=== PATIENT | female | born 1955 | race Caucasian/White ===

== ENCOUNTER 2020-08-23 19:01 | Inpatient (IN) | payer MEDICARE, OTHER ==
[~2020-08-23] VITALS: Ht 157.5 cm; Wt 77.6 kg
--- NOTE | ~2020-08-23 | CON ---
[address] [address] CONSULTATION Name: YOLIE BOO Room: [address] IN M.R.#: [id number] Admission: 08/23/20 Attend Phys: Ziyad De Jesus Discharge: Date of : 51 Report #: [id number] THIS REPORT FOR: //name// cc: John Michelle MD, Bruce D. MD ~ DATE OF SERVICE: 08/24/2020 CONSULT REQUESTED BY: Clement Buneo. INDICATION FOR CONSULTATION: COVID-19. HISTORY OF PRESENT ILLNESS: This is a 65-year-old female with past medical history is as mentioned below. The patient has had exposure to COVID-19. Her has COVID-19. She has been feeling weak and has been progressively declining over the last several days. Does have some increasing shortness of breath, also has a cough with small amounts of white sputum. She does have swelling of lower extremities as well. The patient is having a high-grade fever up to a temperature of 39.1. She has had gastroesophageal reflux and heartburn, which is not significantly changed at this time. She answered to the negative for 12 questions for review of systems. Her blood pressure is within the normal range, but towards the lower end of normal range. She has been fluid resuscitated from the Emergency Room. PAST MEDICAL HISTORY: Hypertension, hyperlipidemia, hiatal hernia, gallbladder removal, inguinal hernia repair, gastroesophageal reflux disease, fibromyalgia, hepatitis A back in 1973, and two C-sections. SOCIAL HISTORY: Lifetime nonsmoker. No known history of heavy alcohol use or illegal drug use. ALLERGIES: SHE HAS HAD HIVES WITH SULFONAMIDE ANTIBIOTICS AND WITH CODEINE. FAMILY HISTORY: Her has COVID-19. PHYSICAL EXAMINATION: GENERAL: She is fully awake. VITAL SIGNS: Has a pulse of 98 and a blood pressure of 111/66. She is on 2 liters nasal cannula, O2 saturation is 96%, heart rate is 98. She had a high-grade fever earlier today at 39.1. Temperature is 37.9 at this time. HEENT: Head is normocephalic and atraumatic. NECK: Does not show raised JVP, asymmetry, mass or lymph nodes. CHEST: Symmetrical expansion on inspection and palpation. On auscultation, breath sounds are bilaterally equal, mildly decreased. No added sounds. HEART: Regular. [place] [address] CONSULTATION Name: RAN BOOOSORIO Handy Room: [address]#: [id number] Admission: 08/23/20 Attend Phys: Ziyad De Jesus Discharge: Date of : 51 Report #: [id number] ABDOMEN: Soft and nontender. EXTREMITIES: Lower extremities do show 2+ edema bilaterally. There is no calf tenderness. SKIN: Dry and intact. NEUROLOGICAL: Moves all extremities bilaterally equally and spontaneously with no focal deficit identified. LABORATORY DATA: The patient does have some leukopenia with a WBC count of 3.6. Her COVID-19 antigen is positive, in [employer] and reviewed. Arterial blood gas does show a respiratory alkalosis. ASSESSMENT AND PLAN: 1. Acute respiratory insufficiency secondary to COVID-19. I recommend watching her O2 saturations closely. Should she fail to improve or if there are increasing oxygen needs, then I would have a very low threshold of starting remdesivir. We will in fact check a room air O2 saturation now and if she is hypoxemic, then we will consider remdesivir in that case now. She is on dexamethasone. I agree with the same as well. 2. Lung nodule. There is a small lung nodule noted on the chest x-ray. I reviewed her chest x-ray. I suggest obtaining a CT chest without contrast to evaluate this further. This, however, does not appear to be urgent and could be done later this admission. 3. Fever. This is primarily secondary to COVID-19; however, she certainly may have secondary bacterial infection as well and therefore, I agree with giving her antibiotics as currently ordered. She is on dexamethasone as well and I fully agree with the same also. 4. Edema of lower extremities. For this reason, I discontinued IV fluids for now, certainly this could be restarted if her blood pressure dropped. She appears to be well perfused, despite having the blood pressure on the lower side. I obtained the D-dimer, the D-dimer is not elevated. It is not entirely clear to me as to why the patient has edema and therefore, I went ahead and ordered a 2D echo. 5. Deep venous thrombosis prophylaxis. The patient is on Lovenox. Thanks for this consultation. By: [id number] Nair MD /nt
[~2020-08-23 19:01] MED LIST: HYDROCHLOROTHIA25 M1; LEXAPRO 10 MG T10 M1; LOVASTAT20; PRILOSEC40 MG PO
[2020-08-23 19:10] VITALS: BP 108/76
[2020-08-23] MEDS ORDERED: BUSPIRONE HCL7.5 MG PO (19:14)
[2020-08-23] MEDS ORDERED: CELECOXIB200 MG PO (19:14)
[2020-08-23] MEDS ORDERED: TRAMADOL 50 MG50 MG PO (19:15)
[2020-08-23 20:07] LABS: BE 0.5 mmol/L (-2 to +3); PCO2 30.3 mmHg (35.0-45.0); PO2 66.9 mmHg (75.0-100.0); pH 7.497 (7.340-7.450)
[2020-08-23 20:58] LABS: ABSOLUTE LYMPHOCYTES 0.7 thou/uL (0.8-5.3); ABSOLUTE MONOCYTES 0.3 thou/uL (0.0-1.2); ABSOLUTE NEUTROPHILS 3.8 thou/uL (1.6-8.1); BASOPHILS 0.2 %; EOSINOPHILS 0.4 %; HEMATOCRIT 32.6 % (37.0-47.0); HEMOGLOBIN 11.8 gm/dL (12.0-15.0); LYMPHOCYTES 14.6 %; MCH 32.8 pg (26.0-34.0); MCHC 36.1 g/dL (28.0-37.0); MCV 91.1 fL (80.0-100.0); MONOCYTES 6.7 %; MPV 8.3 fl. (7.2-11.1); NUCLEATED RBCS 0 /100WBC; PLATELET COUNT* 200 thou/uL (150-400); POLYS 78.1 %; RBC 3.58 mil/uL (4.20-5.00); RDW-CV 12.9 % (10.5-14.5); WBC 4.8 thou/uL (4.0-11.0)
[2020-08-23 21:07] LABS: CALCIUM 8.5 mg/dL (8.5-10.1); CREATININE 1.2 mg/dL (0.6-1.3); POTASSIUM 3.6 mmol/L (3.5-5.1)
[2020-08-23 21:12] LABS: ALBUMIN 3.6 g/dL (3.4-5.0); MAGNESIUM 1.9 mg/dL (1.8-2.4); TOTAL BILIRUBIN 1.2 mg/dL (<0.1-1.0); TOTAL PROTEIN 7.2 g/dL (6.4-8.2)
[2020-08-23 23:03] LABS: URINE BILIRUBIN NEGATIVE (Negative); URINE BLOOD NEGATIVE (Negative); URINE CLARITY CLEAR; URINE COLOR YELLOW; URINE GLUCOSE-RANDOM NEGATIVE (Negative); URINE KETONES NEGATIVE (Negative); URINE LEUKOCYTES-REFLEX NEGATIVE (Negative); URINE NITRITE-REFLEX NEGATIVE (Negative); URINE PROTEIN NEGATIVE (Negative); URINE UROBILINOGEN 0.2 E.U./dl (0.2-1.0)
[2020-08-24] VITALS (7 sets, daily range): BP systolic 106–136; BP diastolic 62–72
[2020-08-24] MEDS ORDERED: VITAMIN D31250 MC1 PO (02:14)
[2020-08-24] MEDS ORDERED: SUPER THERAVIT1 EACH PO (02:15)
[2020-08-24 15:56] LABS: ABSOLUTE LYMPHOCYTES 0.5 thou/uL (0.8-5.3); ABSOLUTE MONOCYTES 0.1 thou/uL (0.0-1.2); BASOPHILS 0.2 %; EOSINOPHILS 0.1 %; HEMOGLOBIN 10.3 gm/dL (12.0-15.0); LYMPHOCYTES 12.9 %; MCH 32.3 pg (26.0-34.0); MCHC 35.6 g/dL (28.0-37.0); MCV 90.8 fL (80.0-100.0); MONOCYTES 1.9 %; MPV 8.3 fl. (7.2-11.1); NUCLEATED RBCS 0 /100WBC; PLATELET COUNT* 179 thou/uL (150-400); POLYS 84.9 %; RBC 3.19 mil/uL (4.20-5.00); RDW-CV 12.7 % (10.5-14.5); WBC 3.6 thou/uL (4.0-11.0)
[2020-08-24 15:59] LABS: CALCIUM 7.8 mg/dL (8.5-10.1); CREATININE 1.1 mg/dL (0.6-1.3); MAGNESIUM 1.8 mg/dL (1.8-2.4)
[2020-08-24 16:04] LABS: PROTIME 10.7 Seconds (9.20-11.50)
--- NOTE | 2020-08-24 17:25 | 2DMMODE ---
[place] [address] 2 D/M-MODE ECHOCARDIOGRAM Name: YOLIE BOO Room: [address] IN Cynthia#: [id number] Admission: 08/23/20 Attend Phys: Gay Winn Discharge: Date of : 51 Date of Service: 08/24/20 1725 Report #: [id number] THIS REPORT FOR: cc: John Michelle MD, Bruce D. MD Blick,Bon Rodriguez MD [facility] ~ APPROVED REPORT Study performed: 08/24/2020 16:23:05 EXAM: Comprehensive 2D, Doppler, and color-flow Echocardiogram Patient Location: In-Patient Room #: [facility] Status: routine BSA: 1.79 HR: 89 bpm BP: 111/66 mmHg Other Information Study Quality: Good Indications Dyspnea 2D Dimensions IVSd: 10.36 (7-11mm) LVOT Diam: 19.80 (18-24mm) LVDd: 39.70 mm PWd: 9.39 (7-11mm) Ascending Ao: 32.92 (22-36mm) LVDs: 22.59 (25-40mm) Aortic Root: 29.51 mm Volumes Left Atrial Volume (Systole) LA ESV Index: 16.50 mL/m2 Aortic Valve AoV Peak Neo.: 1.66 m/s AO Peak Gr.: 11.05 mmHg LVOT Max P.92 mmHg AO Mean Gr.: 6.92 mmHg LVOT Mean P.16 mmHg LVOT Max V: 1.22 m/s AO V2 VTI: 35.55 cm LVOT Mean V: 0.83 m/s MAI (VTI): 2.02 cm2 LVOT V1 VTI: 23.28 [place] [address] 2 D/M-MODE ECHOCARDIOGRAM Name: YOLIE BOO Room: [address]#: [id number] Admission: 08/23/20 Attend Phys: Gay Winn Discharge: Date of : 51 Date of Service: 08/24/20 1725 Report #: [id number] E/A Ratio: 0.75 MV Decel. Time: 193.14 ms MV E Max Neo.: 0.94 m/s MV PHT: 56.01 ms MVA (PHT): 3.93 cm2 TDI E/Lateral E': 10.44 E/Medial E': 9.40 Medial E' Neo.: 0.10 m/s Lateral E' Neo.: 0.09 m/s Pulmonary Valve PV Peak Neo.: 0.92 m/s PV Peak Gr.: 3.41 mmHg Tricuspid Valve RAP Estimate: 5.00 mmHg TR Peak Gr.: 15.68 mmHg RVSP: 20.00 mmHg PA Pressure: 20.00 mmHg Left Ventricle The left ventricle is normal size. There is normal LV segmental wall motion. There is normal left ventricular wall thickness. Left ventricular systolic function is hyperdynamic. LVEF is >70%. Grade I - abnormal relaxation pattern. Right Ventricle The right ventricle is normal size. The right ventricular systolic function is normal. Atria The left atrium size is normal. The right atrium size is normal. Aortic Valve Mild aortic valve sclerosis. No aortic regurgitation is present. There is no aortic valvular stenosis. Mitral Valve The mitral valve is normal in structure. Mild mitral regurgitation. No evidence of mitral valve stenosis. Tricuspid Valve The tricuspid valve is normal in structure. Trace tricuspid regurgitation. No pulmonary hypertension. [place] [address] 2 D/M-MODE ECHOCARDIOGRAM Name: EMARAN HUERTAOSORIO Handy Room: [address]#: [id number] Admission: 08/23/20 Attend Phys: Gay Winn Discharge: Date of : 51 Date of Service: 08/24/20 1725 Report #: [id number] The pulmonary valve is normal in structure. There is no pulmonic valvular regurgitation. Great Vessels The aortic root is normal in size. IVC is normal in size and collapses >50% with inspiration. Pericardium There is no pericardial effusion. <Conclusion> LVEF is >70%. Mild aortic valve sclerosis. Mild mitral regurgitation. <ELECTRONICALLY SIGNED> By: Bon Pozo MD, FACC 08/24/201724 24 24 Bon Pozo MD, FACC /INF
[2020-08-25] VITALS (7 sets, daily range): BP systolic 106–135; BP diastolic 60–74
[2020-08-25 07:49] LABS: HEMATOCRIT 31.4 % (37.0-47.0); HEMOGLOBIN 10.9 gm/dL (12.0-15.0); MCH 31.8 pg (26.0-34.0); MCHC 34.7 g/dL (28.0-37.0); MCV 91.6 fL (80.0-100.0); MPV 8.7 fl. (7.2-11.1); NUCLEATED RBCS 0 /100WBC; PLATELET COUNT* 214 thou/uL (150-400); RBC 3.43 mil/uL (4.20-5.00); RDW-CV 12.7 % (10.5-14.5); WBC 6.6 thou/uL (4.0-11.0)
[2020-08-25 08:06] LABS: CALCIUM 8.3 mg/dL (8.5-10.1); CREATININE 0.9 mg/dL (0.6-1.3); POTASSIUM 3.6 mmol/L (3.5-5.1)
[2020-08-25 08:47] LABS: ABSOLUTE LYMPHOCYTES 0.5 thou/uL (0.8-5.3); ABSOLUTE NEUTROPHILS 6.1 thou/uL (1.6-8.1)
[2020-08-25 08:48] LABS: OVALOCYTES Occasional; PLATELET ESTIMATE ADEQUATE
[2020-08-26] VITALS: BP 111/62
[2020-08-26 04:00] VITALS: BP 116/62
[2020-08-26 05:06] LABS: ABSOLUTE LYMPHOCYTES 0.9 thou/uL (0.8-5.3); ABSOLUTE MONOCYTES 0.4 thou/uL (0.0-1.2); ABSOLUTE NEUTROPHILS 10.3 thou/uL (1.6-8.1); HEMATOCRIT 29.3 % (37.0-47.0); HEMOGLOBIN 10.3 gm/dL (12.0-15.0); LYMPHOCYTES 7.8 %; MCH 31.6 pg (26.0-34.0); MCHC 35.1 g/dL (28.0-37.0); MCV 90.1 fL (80.0-100.0); MONOCYTES 3.3 %; MPV 8.9 fl. (7.2-11.1); NUCLEATED RBCS 0 /100WBC; PLATELET COUNT* 218 thou/uL (150-400); POLYS 88.9 %; RBC 3.25 mil/uL (4.20-5.00); RDW-CV 12.7 % (10.5-14.5); WBC 11.6 thou/uL (4.0-11.0)
[2020-08-26 05:29] LABS: ALBUMIN 2.9 g/dL (3.4-5.0); CALCIUM 8.3 mg/dL (8.5-10.1); POTASSIUM 3.9 mmol/L (3.5-5.1); TOTAL BILIRUBIN 0.7 mg/dL (<0.1-1.0); TOTAL PROTEIN 6.5 g/dL (6.4-8.2)
[2020-08-26 08:30] VITALS: BP 128/68
[2020-08-26 15:53] VITALS: BP 112/62
[2020-08-26 18:06] VITALS: BP 107/67
[2020-08-26 19:30] VITALS: BP 126/63
[2020-08-27 00:27] VITALS: BP 144/63
[2020-08-27 04:00] VITALS: BP 143/88
[2020-08-27 06:23] LABS: CALCIUM 8.2 mg/dL (8.5-10.1); CREATININE 1.1 mg/dL (0.6-1.3); POTASSIUM 4.1 mmol/L (3.5-5.1)
[2020-08-27 06:39] LABS: ABSOLUTE LYMPHOCYTES 0.8 thou/uL (0.8-5.3); ABSOLUTE MONOCYTES 0.3 thou/uL (0.0-1.2); ABSOLUTE NEUTROPHILS 8.8 thou/uL (1.6-8.1); BASOPHILS 0.2 %; HEMATOCRIT 30.6 % (37.0-47.0); HEMOGLOBIN 10.9 gm/dL (12.0-15.0); LYMPHOCYTES 8.1 %; MCH 32.4 pg (26.0-34.0); MCHC 35.6 g/dL (28.0-37.0); MCV 90.8 fL (80.0-100.0); MPV 8.9 fl. (7.2-11.1); NUCLEATED RBCS 0 /100WBC; PLATELET COUNT* 237 thou/uL (150-400); POLYS 88.7 %; RBC 3.37 mil/uL (4.20-5.00); RDW-CV 12.6 % (10.5-14.5); WBC 9.9 thou/uL (4.0-11.0)
[2020-08-27 08:15] VITALS: BP 125/68
[2020-08-27 12:00] VITALS: BP 130/73
[2020-08-27 16:00] VITALS: BP 131/70
[2020-08-27 19:30] VITALS: BP 132/64
[2020-08-28] VITALS: BP 145/76
[2020-08-28 04:00] VITALS: BP 133/71
[2020-08-28 05:16] LABS: HEMATOCRIT 31.4 % (37.0-47.0); HEMOGLOBIN 11.1 gm/dL (12.0-15.0); MCH 31.9 pg (26.0-34.0); MCHC 35.2 g/dL (28.0-37.0); MCV 90.5 fL (80.0-100.0); MPV 9.1 fl. (7.2-11.1); NUCLEATED RBCS 0 /100WBC; PLATELET COUNT* 262 thou/uL (150-400); RBC 3.47 mil/uL (4.20-5.00); RDW-CV 12.5 % (10.5-14.5); WBC 8.3 thou/uL (4.0-11.0)
[2020-08-28 05:25] LABS: CALCIUM 8.4 mg/dL (8.5-10.1); CREATININE 0.9 mg/dL (0.6-1.3); MAGNESIUM 2.1 mg/dL (1.8-2.4); POTASSIUM 3.8 mmol/L (3.5-5.1)
[2020-08-28 07:02] LABS: ABSOLUTE LYMPHOCYTES 1.2 thou/uL (0.8-5.3); ABSOLUTE MONOCYTES 0.3 thou/uL (0.0-1.2); ABSOLUTE NEUTROPHILS 6.8 thou/uL (1.6-8.1); ATYPICAL MONONUCLEARS 1 %; METAMYELOCYTES 1 %
[2020-08-28 07:03] LABS: PLATELET ESTIMATE ADEQUATE
[2020-08-28 09:00] VITALS: BP 139/85
[2020-08-28] MEDS ORDERED: DEXAMETHASONE1 MG PO (10:49)
[2020-08-28] MEDS ORDERED: DOXYCYCLINE 10100 M2 PO (10:49)
[2020-08-28 12:22] VITALS: BP 139/85
== END 2020-08-28 12:35 | disposition home or self-care (01) | DRG 177 ==
LOC: M.ERS 19:01 → M.TBA-ER 21:19 → M.ORTHSURG 21:19
PROVIDERS: Internal Medicine; Internal Medicine Critical Care Medicine; Personal Emergency Response Attendant; ADMIT Internal Medicine; ATTEND Internal Medicine
DX: U07.1 COVID-19 (principal); J12.89 Other viral pneumonia; J96.01 Acute respiratory failure with hypoxia; R65.10 Systemic inflammatory response syndrome (SIRS) of non-infectious origin without acute organ dysfunction; M79.7 Fibromyalgia; E78.5 Hyperlipidemia, unspecified; R91.1 Solitary pulmonary nodule; I10 Essential (primary) hypertension; R60.0 Localized edema; K21.9 Gastro-esophageal reflux disease without esophagitis; Z90.49 Acquired absence of other specified parts of digestive tract; Z88.2 Allergy status to sulfonamides; Z88.5 Allergy status to narcotic agent; Z79.899 Other long term (current) drug therapy; Z98.891 History of uterine scar from previous surgery

== ENCOUNTER → 2020-12-04 | Outpatient (CLI) | payer MEDICARE, OTHER ==
[~2020-12-04] MED LIST changes: +BUSPIRONE HCL7.5 MG PO; +CELECOXIB200 MG PO; +DEXAMETHASONE1 MG PO; +DOXYCYCLINE 10100 M2 PO; +SUPER THERAVIT1 EACH PO; +TRAMADOL 50 MG50 MG PO; +VITAMIN D31250 MC1 PO
== END ==
LOC: M.PUL 11-22 10:30 → M.CT 11-22 10:30
PROVIDERS: ATTEND Internal Medicine Critical Care Medicine
DX: R91.8 Other nonspecific abnormal finding of lung field (principal); K44.9 Diaphragmatic hernia without obstruction or gangrene; I25.10 Atherosclerotic heart disease of native coronary artery without angina pectoris

== ENCOUNTER 2021-05-18 08:09 | Emergency (ER) | payer MEDICARE ==
[~2021-05-18] VITALS: Ht 157.5 cm; Wt 77.1 kg
[2021-05-18] MEDS ORDERED: LIPITOR 20 MG T20 M1 PO (08:34)
[2021-05-18] MEDS ORDERED: LISINOPRIL-HCT1 EACH PO (08:34)
[2021-05-18] MEDS ORDERED: LORATIDINE 10 M10 M1 PO (08:36)
[2021-05-18] MEDS ORDERED: TESSALON PERLE100 M1 PO (09:50)
[2021-05-18 09:57] VITALS: BP 120/81
== END 2021-05-18 09:58 | disposition home or self-care (01) ==
LOC: M.ERS 08:09
DX: J06.9 Acute upper respiratory infection, unspecified (principal); Z20.822 Contact with and (suspected) exposure to COVID-19; E78.5 Hyperlipidemia, unspecified; I10 Essential (primary) hypertension; M79.7 Fibromyalgia; K21.9 Gastro-esophageal reflux disease without esophagitis; Z98.890 Other specified postprocedural states; Z88.1 Allergy status to other antibiotic agents; Z88.2 Allergy status to sulfonamides; Z88.5 Allergy status to narcotic agent

== ENCOUNTER → 2021-07-31 | Outpatient (CLI) | payer MEDICARE ==
[~2021-07-31] MED LIST changes: +LIPITOR 20 MG T20 M1 PO; +LISINOPRIL-HCT1 EACH PO; +LORATIDINE 10 M10 M1 PO; +TESSALON PERLE100 M1 PO
== END ==
LOC: M.LAB 10:11
PROVIDERS: ATTEND Internal Medicine Critical Care Medicine
DX: R60.0 Localized edema (principal)